=== PATIENT | male | born 1950 | race Caucasian/White ===

== ENCOUNTER 2017-04-03 00:29 | Outpatient (CLI) | payer BC, MEDICARE | END 2017-04-03 23:59 | disposition home or self-care (01) | LOC: DIABETIC 00:29 | PROVIDERS: ATTEND Specialist | DX: E11.65 Type 2 diabetes mellitus with hyperglycemia (principal) | CPT/HCPCS: G0108 ==

== ENCOUNTER 2017-07-01 04:58 | Outpatient (CLI) | payer MEDICARE, BC | END 2017-07-01 23:59 | disposition home or self-care (01) | LOC: DIABETIC 04:58 | PROVIDERS: ATTEND Specialist | DX: E11.65 Type 2 diabetes mellitus with hyperglycemia (principal) | CPT/HCPCS: G0108 ==

== ENCOUNTER 2024-07-16 09:11 | Emergency (ER) | payer MEDICARE, BC ==
[~2024-07-16] VITALS: Ht 172.7 cm; Wt 84.0 kg
[2024-07-16 09:12] VITALS: BP 160/77; PULSE 86; O2SAT 97
--- NOTE | 2024-07-16 09:44 | RADIOLOGY REPORT ---
CLINICAL INDICATION: KNEE PAIN TECHNIQUE: Right DI KNEE, COMP 4 VW MIN Comparison: None FINDINGS/IMPRESSION: : There is no evidence of acute fracture or dislocation. Small joint effusion.
--- NOTE | 2024-07-16 10:10 | Physician Documentation ---
History of Present Illness ~ Chief Complaint: Knee Pain Stated Complaint: R KNEE PAIN Time Seen by MD: 09:27 Primary Medical Doctor: Dr. Toure HPI This 74-year-old male with history of bilateral meniscal tears presents with three days of right knee pain after slipping on rocks while hiking, patient reports for the 1st day the pain was manageable however he rolled over in bed yesterday morning twisting his knee further and the pain became much worse, patient reports that he takes Celebrex daily for chronic knee pain and this is not providing relief for current pain, patient reports he took some leftover tramadol which did help though was now out. Patient reports that he has an appointment in two weeks with Dr. Stinson for a shoulder surgery. Tetanus witin 5 years: No Medication Reconciliation Allergies: Coded Allergies: meperidine (Unverified Adverse Reaction, Unknown, 07/16/24) Scheduled PRN Tramadol HCl (Tramadol HCl), 1 TAB PO Q6H PRN PRN for pain Review of Systems ROS Right knee pain as stated above in the HPI, otherwise all systems are reviewed and negative. Physical Exam Vital Signs: Temperature: 98.0, Source: Temporal, Heart Rate: 86, Respiratory Rate: 16, BP: 160/77, Pulse Oximetry: 97, Weight: 84.000 Oxygen Flow Rate: 0 Physical Exam VITALS: Reviewed and as above. GENERAL: Alert, nontoxic appearing, no apparent distress. RESPIRATORY: No increased work of breathing, no respiratory distress, speaking in full clear sentences MUSCULOSKELETAL:Tenderness and warmth to right lateral knee, mild swelling, no erythema, no ecchymosis foot neurovascularly intact with strong pedal pulse distal to injury. Patient is able to walk and bear weight with limping gait. Progress Results/Orders Results/Orders Orders - BRANT PITT Ortho Orders (07/16/24 ) Completed Orders - BRANT PITT Ketorolac Trometh 15mg/Ml Vial (Toradol (07/16/24 10:05) Vital Signs 07/16/24 07/16/24 07/16/24 09:12 10:15 10:31 Temp 98.0 98.0 Pulse 86 Resp 16 16 B/P (MAP) 160/77 Pulse Ox 97 O2 Flow Rate 0 EKG/XRAY/CT/US/VASC/MRI Bone/Soft Tissue X-Ray (Ext.) : Additional Comment CLINICAL INDICATION: KNEE PAIN TECHNIQUE: Right DI KNEE, COMP 4 VW MIN Comparison: None FINDINGS/IMPRESSION: : There is no evidence of acute fracture or dislocation. Small joint effusion. Electronically Signed by:NARAYAN KENDRICK MD Date & Time: 07/16/24940 Dictated by: NARAYAN KENDRICK MD Dictation date and time: 07/16/24927 I have reviewed and agree with the radiology report. I have reviewed and interpreted the imaging as: No fracture or dislocation Medical Decision Making Findings This 74-year-old male with history of bilateral meniscal tears of the knees presents with right knee pain after twisting his leg three days prior with pain becoming much worse proximally one day prior while turning over in bed further injuring the right knee, x-ray did not demonstrate evidence of fracture or dislocation, physical exam significant for pain warmth and mild swelling to the lateral aspect of the right knee without ecchymosis erythema or signs of infection. It was reassuring the patient is able to move the knee though with limited ROM due to pain and is able to walk and bear weight though with a limping gait. The limb distal to the injury is neurovascularly intact. Suspect soft tissue injury of the knee that will require orthopedic follow up, patient reports that he already has an appointment with Dr. Stinson who he has seen for other orthopedic surgeries and would like to follow up with so the plan will be for patient to follow up with Dr. Stinson. Remainder of physical exam was benign and vital signs were stable and patient is appropriate for outpatient follow up. Patient was medicated for pain and placed on crutches and provided home care instructions. Patient provided return to care precautions which he verbalized understanding of. Patient discharged with prescription for tramadol for breakthrough pain. I have discussed with the patient the risks of addiction and overdose associated with use of opioids, including the increased risk of addiction to an opioid for an individual who is suffering from both mental and substance abuse disorders. I have discussed with the patient the danger of taking an opioid with a benzodiazepine, alcohol, or another central nervous system depressant. Knee Diff Dx:Considerations: Include: Abrasion, Contusion, DJD, Fracture-femur, Fracture-fibula, Fracture-patella, Fracture-tibia, Gout, Hematoma, Laceration, Meniscus injury, Neurovascular injury, Septic, Sprain Departure Time of Disposition: 10:10 Disposition: 01 HOME / SELF CARE / HOMELESS Impression: Primary Impression: Knee pain Qualified Codes: M25.561 - Pain in right knee Condition: Improved Discharge Instructions: Acute Knee Pain, Adult, [facility] for Routine Care of Injuries Additional Instructions: Follow up with the orthopedist of your choice soon as possible, additionally follow up with her primary care provider for continued pain management until you can get in with your orthopedist. Continue to take your Celebrex as previously prescribed, you may add Tylenol to this to supplement pain relief as directed by [id number] packaging. I have prescribed you a short course of tramadol that you may take for breakthrough or severe pain. Continue to ice and rest of the knee, please see the [facility] home care instructions. Please return to the emergency department for any new or worsening concerning symptoms. You have been prescribed an opioid medication, there are risks of addiction and overdose associated with the use of opioids. The risk of addiction to an opioid for increases for those suffering both from mental health and substance use disorders. The use of an opioid while taking other central nervous system depressants including but not limited to benzodiazepines or alcohol, or other opioids increases the risk of serious side effects that can include overdose or respiratory depression that can lead to serious injury or . Referrals: NO PRIMARY CARE PROVIDER (PCP) Prescriptions Tramadol HCl (Tramadol HCl) 50 Mg Tablet 1 TAB PO Q6H PRN PRN for pain for 3 Days, #12 TAB Prov: BRANT PITT 07/16/24 Education Educated: Patient, Family Educated regarding: diagnosis, treatment, prognosis, need for follow up Signature Scribe Signature: No scribe Attestation: The note accurately reflects work and decisions made by me.DOUG Wright 07/16/24 20:33 BRANT PITT July 16, 2024 10:10
[2024-07-16 10:15] VITALS: RESP 16
[2024-07-16] MEDS: ketorolac trometh 15mg/ml vial 15 MG/ML ML IM ONE (10:15)
[2024-07-16] MEDS ORDERED: TRAM50TA2 PO (10:16)
[2024-07-16 10:31] VITALS: TEMP 98
== END 2024-07-16 10:33 | disposition home or self-care (01) ==
LOC: ER 09:12
DX: M25.561 Pain in right knee (principal); G89.29 Other chronic pain; M54.9 Dorsalgia, unspecified; Z88.5 Allergy status to narcotic agent
CPT/HCPCS: 73564; 96372; 99283; A6449; J1885